=== PATIENT | female | born 1960 | race Caucasian/White ===

== ENCOUNTER 2020-05-30 20:34 | Emergency (ER) | payer OTHER ==
[2020-05-31] MEDS ORDERED: ZITHROMAX250 MG PO (00:48)
[2020-05-31] MEDS ORDERED: PREDNISONE 10 M10 MG PO (00:48)
== END 2020-05-31 01:00 | disposition home or self-care (01) ==
LOC: ER1 20:34
DX: H61.22 Impacted cerumen, left ear (principal); H66.92 Otitis media, unspecified, left ear; Z88.8 Allergy status to other drugs, medicaments and biological substances; Z88.0 Allergy status to penicillin
CPT/HCPCS: 70450; 99284